=== PATIENT | female | born 1950 | race Caucasian/White ===

== ENCOUNTER 2016-08-31 06:21 | Inpatient (IN) | payer BC ==
--- NOTE | 2016-08-18 17:09 | HP ---
PREOPERATIVE HISTORY AND PHYSICAL: DATE OF ADMISSION: This patient is scheduled for AA admission by Dr. Vega on 08/31/16. DATE OF PREOPERATIVE HISTORY AND PHYSICAL EXAMINATION: 08/17/16. ATTENDING SURGEON: Dr. Maciej Vega (dictated by Bal Keys NP). CHIEF COMPLAINT: Morbid obesity; paraesophageal hernia. HISTORY OF PRESENT ILLNESS: The patient is a 66-year-old female, she stands at 64 inches and weighs 199 pounds for a body mass index of 34.2. She has weight- related comorbidities of type 2 diabetes, paraesophageal hernia with gastroesophageal reflux disease, coronary artery disease with stenting, hypertension, hypercholesterolemia, and depression. She is looking to bariatric surgery as a more permanent solution to her obesity-related comorbidities. During the medically supervised weight loss period, she lost 20 pounds. She has been very committed to behavioral changes, she has completed all of the necessary preoperative diagnostic testing and evaluations, and has been deemed an appropriate candidate by Dr. Vega to proceed with laparoscopic Brayan-en-Y gastric bypass and repair of the paraesophageal hernia. Dr. Vega examined the patient and discussed the nature of the surgical procedure and the expected results of surgery as well as the relevant risks, benefits, and alternatives. Today, I reviewed the typical hospitalization and expected postoperative care and recovery as well as the need for compliance with the stages of the postoperative diet, exercise, vitamin and mineral supplementation, and followup visits. The patient has had a chance to ask questions and stated that she understands the information and is satisfied with the answers given to her questions. She will sign surgical consent on the day of surgery. PAST MEDICAL HISTORY: Significant for obesity, coronary artery disease requiring stenting, type 2 diabetes, hypertension, hypothyroidism, hypercholesterolemia, gallstone pancreatitis, plantar fasciitis, paraesophageal hernia with GERD, depression and anxiety. PAST SURGICAL HISTORY: Coronary artery stenting to the LAD in [address] [place] [address] Monge; total hysterectomy; umbilical hernia repair on two separate occasions; laparoscopic cholecystectomy; tonsillectomy in childhood. MEDICATIONS: 1. Valacyclovir 500 mg p.o. daily. 2. Pantoprazole 40 mg p.o. b.i.d. 3. Levothyroxine 75 mcg p.o. daily. 4. Aspirin 81 mg p.o. daily and I have advised the patient to hold that for 1 week preoperatively. 5. Rosuvastatin 20 mg p.o. daily. 6. Metoprolol ER 50 mg p.o. daily. 7. VESIcare 10 mg p.o. daily. She is also on the following supplements: 1. Vitamin D3 3000 International Units daily. 2. Biotin 5000 mcg daily. 3. Coenzyme Q10 daily. 4. Super B-Complex daily. 5. Vitamin C 500 mg daily. 6. Cinnamon 500 mg 2 tablets daily. 7. Turmeric 500 mg daily. ALLERGIES: FLAGYL caused itching of her feet; TETANUS caused severe flu-like symptoms; VICODIN, ULTRACET, TETRACYCLINE, BACTRIM, and DOXYCYCLINE all cause vomiting. FAMILY HISTORY: Mother age 67 with a history of congestive heart failure, diabetes, and lupus, and was described as overweight. Father age 70 and the patient states he 15 months after his . He was also diabetic and described as overweight. The patient has one sister, age 64, with heart valve disease, described as normal weight. No known anesthesia complications, bleeding tendencies, or clotting disorders in the family. SOCIAL HISTORY: She is and is employed in the [employer] at [employer]. She quit smoking over 40 years ago after smoking 2 packs a day for about 10 years. She denies the use of alcohol or other substances. She feels that she has good support from her and friends. REVIEW OF SYSTEMS: In 2006, she was experiencing heartburn and fatigue and was advised to have a stress test, which was abnormal and she underwent cardiac catheterization and had stenting to the LAD by Dr. Monge in [place]; she did not have a myocardial infarction; she has routine Cardiology followups with Dr. Monge in [place]. She underwent nuclear stress testing in March, which was normal, no ischemia. She had an echocardiogram May 2016, which revealed normal diastolic function with an ejection fraction around 60% to 65%; she denies any chest pain, palpitations, or chest pressure. She has a history of rheumatic fever in adolescence. She is treated for hypertension and hypercholesterolemia. She denies any respiratory complaints. She has a history of gastroesophageal reflux and underwent preoperative upper GI series, which revealed a large reducible paraesophageal hernia, which will be repaired at the same setting as the laparoscopic gastric bypass. She states that her acid reflux is mostly controlled by pantoprazole. She did have an upper endoscopy by Dr. Sheikh, which revealed a moderate-sized hiatal hernia, no North's esophagus. She denies any current diarrhea or constipation. She denies any genitourinary complaints. She denies any previous anesthesia complications or bleeding tendencies and has never received a blood transfusion. She denies any history of deep vein thrombosis or pulmonary embolism. She states that physical limitations due to her obesity include prolonged walking and she has a history of a right torn ACL that was not repaired, so she has chronic right knee pain and left hip pain. She was diagnosed with type 2 diabetes about 2-1/ 2 years ago; she was on metformin, but that was thought to cause diarrhea, so she is not currently on any oral hypoglycemics or insulin, but she is diet controlled; she does not check her fingersticks. She was diagnosed with hypothyroidism many years ago. PHYSICAL EXAMINATION GENERAL SURVEY: The patient is a 66-year-old female, overweight, in no acute distress. VITAL SIGNS: Height 64 inches, weight 198 pounds, body mass index 34. Blood pressure 132/78, pulse 60 and regular, respiratory rate 18, afebrile. HEENT: Benign. NECK: Supple. No cervical lymphadenopathy. No thyromegaly. BACK: No CVA tenderness. LUNGS: Breath sounds bilaterally clear and equal. HEART: Regular rate and rhythm. No murmurs or rubs appreciated. ABDOMEN: Active bowel sounds, obese, multiple well-healed surgical scars. Soft and nondistended and nontender throughout. No obvious masses, organomegaly , or evidence of incisional or ventral hernias. PELVIC EXAM: Deferred. RECTAL EXAM: Deferred. EXTREMITIES: Warm without edema or skin ulcerations. NEUROLOGIC: Alert and oriented x3. Steady gait. SKIN: Warm, dry, intact. IMPRESSION: Class 2 obesity with associated comorbidities. PLAN: AA admission to Dr. Vega' service for laparoscopic Brayan-en-Y gastric bypass and repair of paraesophageal hernia on 08/31/16. The patient started her preoperative diet, 08/17/16. BAL KEYS NP CC: Dr. Joie Lenz; Dr. Vega* [id number]/[facility] #: [id number] [facility] N[facility] FACILITYAllyson
[~2016-08-31 06:21] MED LIST: Buffered Lidocaine 1% SYRIN* 3 ML/SYR SYRINGE INTRADERM ONE; Clindamycin 900 MG IVPREMIX(* 900 MG/50 ML SDV IV ONE; Dexamethasone IV* 4 MG/ML 1 ML (4 MG) IV SLOW PU ONE; Heparin VIAL(*) 5000 UNITS/ML VIAL (FIVE THOUSAND) ONE; ceFAZolin 1 GM in Dextrose (*) 1 GM/50 ML BAG IVPB ONE; ceFAZolin 2 GM PREMIX(*) 2 GM/50 ML BAG IVPB ONE
[2016-08-31] MEDS ORDERED: Methylene Blue 0.5 %* 50 MG/10 ML AMP IV ONE (07:18)
[2016-08-31] MEDS ORDERED: Bupivacaine 0.5% W/EPI SDV* 30 ML VIAL ONE (07:19)
[2016-08-31] MEDS ORDERED: Midazolam* 1 MG/ML 5 ML VIAL (5 MG) ONE (07:28)
[2016-08-31] MEDS ORDERED: Ketorolac INJ* 30 MG/ML 1 ML VIAL ONE (07:28)
[2016-08-31] MEDS ORDERED: Propofol* 10 MG/ML 20 ML BTL IV PUSH ONE (07:28)
[2016-08-31] MEDS ORDERED: Atracurium* 10 MG/ML 10 ML VIAL ONE (07:28)
[2016-08-31] MEDS ORDERED: fentaNYL* 50 MCG/ML 5 ML VIAL (250 MCG VIAL) ONE (07:28)
[2016-08-31] MEDS ORDERED: EPHEDrine (Pressors)* 50 MG/ML VIAL ONE (07:28)
[2016-08-31] MEDS ORDERED: Ondansetron INJ* 2 MG/ML VIAL ONE ×2 (07:28→11:36)
[2016-08-31] MEDS ORDERED: Lidocaine 2% PF * 5 ML VIAL ONE (07:28)
[2016-08-31] MEDS ORDERED: Glycopyrrolate IV* 0.2 MG/ML 1 ML VIAL ONE (08:15)
[2016-08-31] MEDS ORDERED: fentaNYL* 50 MCG/ML 2 ML VIAL (100 MCG VIAL) ONE (08:35)
[2016-08-31] MEDS ORDERED: Atropine 1MG/ML INJ* 1 ML VIAL ONE (09:21)
[2016-08-31] MEDS ORDERED: Phenylephrine IV* 40 MCG/ML 10 ML SYRINGE ONE (09:41)
[2016-08-31] MEDS ORDERED: HYDROmorphone* 1 MG/ML 1 ML SYR IV PRN ×2 (10:36→11:27)
[2016-08-31] MEDS ORDERED: Scopolamine 1.5 mg* PATCH TRANSDERM PRN (10:36)
[2016-08-31] MEDS ORDERED: DiMENhydriNATE IV* 50 MG/ML VIAL IV PUSH PRN (10:36)
[2016-08-31] MEDS ORDERED: Ondansetron INJ* 2 MG/ML VIAL IV PRN ×2 (10:36→11:27)
[2016-08-31] MEDS ORDERED: fentaNYL* 50 MCG/ML 2 ML VIAL (100 MCG VIAL) IV PRN (10:36)
[2016-08-31] MEDS ORDERED: diPHENhydraMINE IV* 50 MG/ML 1 ml VIAL (BENADRYL) SLOW PUSH PRN (11:27)
--- NOTE | 2016-08-31 11:37 | SURGPN ---
Brief Operative Note - Surgery Procedures: PRE/POSTOP DX: MORBID OBESITY/PARAESOPHAGEAL HERNIA PROC: LAP REPAIR PEH AND LRYGB SURG: MECENAS ASSIST: SUNDAY WEBB: VALENTÍN COVINGTON EBL: 100ML IVF: CRYSTALLOID SPEC: NONE DRAIN: NONE COMPL: NONE COND: STABLE, TO RR
[2016-08-31] MEDS ORDERED: Scopolamine 1.5 mg* PATCH ONE (11:48)
[2016-08-31] MEDS ORDERED: DiMENhydriNATE IV* 50 MG/ML VIAL ONE (11:48)
[2016-08-31] MEDS ORDERED: Metoprolol Tartrate IV* 1 MG/ML 5 ML VIAL IV SCH (12:00)
[2016-08-31] MEDS ORDERED: Pantoprazole IV* 40 MG IV SCH (12:00)
[2016-08-31] MEDS ORDERED: Metoprolol Tartrate IV* 1 MG/ML 5 ML VIAL ONE (13:54)
[2016-08-31] MEDS: Heparin VIAL(*) 5000 UNITS/ML VIAL (FIVE THOUSAND) SUBCUT SCH ×2 (14:14→21:11)
[2016-08-31] MEDS ORDERED: Metoclopramide IV* 5 MG/ML 2 ML VIAL ONE (15:29)
[2016-08-31] MEDS ORDERED: PROCHLORPERAZINE INJ 5 MG/ML 2 ML VIAL IV PRN (15:30)
[2016-08-31] MEDS: Metoprolol Tartrate IV* 1 MG/ML 5 ML VIAL IV SCH (20:05)
[2016-08-31] MEDS: Ketorolac INJ* 30 MG/ML 1 ML VIAL IV PRN (21:10)
[2016-09-01] MEDS: Metoprolol Tartrate IV* 1 MG/ML 5 ML VIAL IV SCH ×4 (02:20→20:15)
[2016-09-01] MEDS: Ketorolac INJ* 30 MG/ML 1 ML VIAL IV PRN ×3 (04:02→21:47)
--- NOTE | 2016-09-01 04:26 | OP ---
DATE OF OPERATION: 08/31/16 - ROOM #352 DATE OF : 50 SURGEON: Maciej Vega MD NUCLEAR PHYSICIST: Fabian Solorzano MD ANESTHESIOLOGIST: Bryce Tony MD ANESTHESIA: General endotracheal. PRE-OP DIAGNOSES: Paraesophageal hernia and morbid obesity. POST-OP DIAGNOSES: Paraesophageal hernia and morbid obesity. OPERATIVE PROCEDURE: Laparoscopic repair of paraesophageal hernia and laparoscopic Brayan-en-Y gastric bypass. ESTIMATED BLOOD LOSS: 100 mL. IV FLUIDS: 2.3 L of crystalloid. SPECIMEN: None. DRAINS: None. COMPLICATIONS: None. COUNTS: The instrument, needle, and sponge counts were correct. DESCRIPTION OF PROCEDURE: The patient was brought to the operating room and placed on the table supine. Sequential compression devices were placed on both lower extremities. General anesthesia was administered. Vazquez catheter was placed. The patient's abdomen was prepped and draped in the usual sterile fashion. She received appropriate intravenous antibiotics. Time-out was performed. Local anesthetic was infiltrated in the skin and soft tissue prior to making each incision. Entry to the abdomen was through a left upper quadrant incision accommodating a 12-mm optical trocar. After accessing the peritoneal cavity, carbon dioxide was insufflated to a pressure of 15 mmHg. Under direct visualization, 12-mm bladeless trocars were placed in the supraumbilical midline and in the right upper quadrant. 5-mm trocars were placed in the right upper quadrant medially and left upper quadrant laterally. A Annabel liver retractor was placed percutaneously in the subxiphoid position and used to elevate the left lobe of the liver. Adhesions of omentum to the umbilical region where a previous mesh umbilical hernia repair had been performed were noted; these were taken down as well as omental adhesions to the sigmoid sigmoid. This was done with LigaSure. Approach to the paraesophageal hernia was to initially reduce the stomach from the mediastinum using [id number] technique with atraumatic graspers. The short gastric vessels were then divided in order to enter the plane of the paraesophageal hernia sac, which was opened and dissected out of the mediastinum while the edge of the sac at the hiatus was divided with LigaSure. This was performed initially left to right and then the approach was taken through the pars flaccida to again dissect out the sac and divide it from the right side to the left side meeting the previous area of dissection. In this way, the entire sac was reduced. The esophagus was brought into view and the areolar tissues surrounding the esophagus were divided. The posterior dissection was performed to free the posterior attachments of the sac and this was divided. The vagus nerves were identified and preserved. A quarter- inch [place] drain was used to encircle the gastroesophageal junction and this was secured with Surgitie and this was used to manipulate the esophagus for the remaining portions of the case. The esophagus was freed circumferentially until adequate length of intra-abdominal esophagus was obtained. Subsequently, cruroplasty was performed closing the hiatal hernia with four interrupted 0 Ti- Cron sutures over 56-Czech bougie. Once this was completed, the gastric bypass was performed. The perigastric dissection was undertaken on the lesser curvature about the second crossing vein and a transverse firing with the EndoGIA stapler across the stomach was performed. This was done with a 45-mm zimmerman stapler cartridge and then vertical firings towards the gastroesophageal junction were performed with the 60-mm zimmerman cartridges to complete the gastric pouch, which was approximately 15 to 30 mL volume. After inspecting the benjy lines, noting them to be intact and hemostatic, the ligament of Treitz was identified and then the jejunum was measured out 40 to 50 cm and at this point, this loop was brought up in proximity to the gastric pouch and sutured to the left lateral side of the gastric pouch with interrupted 2-0 silk. Next, a 36-Czech orogastric lavage tube was placed into the gastric pouch and then gastrotomy was created in the pouch with the cautery and an enterotomy created in the jejunum. There was some bleeding on the gastric pouch side and this was eventually controlled with cautery. The gastrojejunal anastomosis was created with the EndoGIA stapler with a 30-mm zimmerman cartridge. The common gastroenterotomy was run closed with 3-0 Maxon. Once this was completed, the jejunum was divided to the left of the gastric pouch and then the gastrojejunal anastomosis was tested with methylene blue dye solution instilled through the orogastric tube. There was no leak identified. The Brayan limb was then measured out for 75 cm and at this point, a functional end- to-side jejunojejunostomy was created with a 60-mm zimmerman cartridge on the TRA. The common enterotomy was then closed with 3-0 Maxon and the mesenteric defect was closed with 3-0 silk in running fashion. Hemostasis was assured and again hiatus was inspected. It was decided to suture the remnant stomach to the crura on the left and right side anteriorly to secure it and cover the anterior defect that remained. Subsequently, the ports were removed and carbon dioxide was released and the incisions were all closed with benjy. The dressings were applied. The patient was extubated uneventfully and transferred to Recovery in stable condition. CC: Joie Lenz MD, [place] * [id number]/[facility] #: [id number] MTDAllyson
[2016-09-01] MEDS: Heparin VIAL(*) 5000 UNITS/ML VIAL (FIVE THOUSAND) SUBCUT SCH ×3 (06:02→21:52)
[2016-09-01] MEDS ORDERED: Famotidine IV* 10 MG/ML 2 ML (20 mg) IV SCH (09:00)
--- NOTE | 2016-09-01 09:09 | PN ---
Progress Note - Progress Note Note: Surgery Progress: S: POD #1. Had some N, one episode of vomiting yesterday; none since. Pain controlled w/ Toradol. Ambulating well. O: Vital Signs - 8 hr 09/01/16 09/01/16 09/01/16 02:31 03:56 07:23 Temperature 98.8 F 98.1 F Pulse Rate 64 70 Respiratory 16 16 Rate Blood Pressure 144/68 130/70 (mmHg) O2 Sat by Pulse 95 91 85 Oximetry Intake and Output Last 24 Hours 08/30/16 08/31/16 09/01/16 09/02/16 06:59 06:59 06:59 06:59 Intake Total 4255 Output Total 3550 650 Balance 705 -650 Weight 190 lb Intake: IV Fluids 3933 LR 3933 IVPB 322 LR 322 Oral 0 Output: Urine 650 Vazquez 3550 Other: Estimated Blood Loss LESS THAN 100 Comment Heart: reg Lungs: clear; few bibasilar crackles Abd: +BS; dressings clean, dry; soft; incisional tenderness only A: s/p lap gastric bypass w/ repair hiatal hernia, doing well P: d/c Vazquez; start refugio clears
[2016-09-01] MEDS: Levothyroxine TAB* 75 MCG TAB PO SCH (09:48)
[2016-09-01] MEDS: D5W 1/2 NS KCl 20 Meq 1000 ML* 1,000 ML IV SCH (17:54)
[2016-09-01] MEDS: CMC:Pantoprazole TAB (NF) 40 MG TAB PO SCH (21:49)
[2016-09-02] MEDS: D5W 1/2 NS KCl 20 Meq 1000 ML* 1,000 ML IV SCH (01:55)
[2016-09-02] MEDS: Metoprolol Tartrate IV* 1 MG/ML 5 ML VIAL IV SCH ×2 (02:01→08:58)
[2016-09-02] MEDS: Ketorolac INJ* 30 MG/ML 1 ML VIAL IV PRN ×2 (03:56→10:37)
[2016-09-02] MEDS: Heparin VIAL(*) 5000 UNITS/ML VIAL (FIVE THOUSAND) SUBCUT SCH (06:22)
[2016-09-02 07:46] VITALS: BP 144/68
--- NOTE | 2016-09-02 08:33 | PN ---
Progress Note - Progress Note SOAP: Subjective:tolerating po,walking,large uo,good pain control,wants to go home [] Objective:afeb,VSS,lungs:crackles at both bases,mid and upper choudhury clear;heart :RRR,no murmur;Abd:+bs,nondistended,incisions intact with dressings,no erythema; ext:no edema,nontender Vital Signs Temp 97.8 F 09/02/16 07:14 Pulse 60 09/02/16 07:14 Resp 18 09/02/16 07:50 BP 144/68 09/02/16 07:14 Pulse Ox 92 09/02/16 07:14 Intake & Output 09/01/16 09/02/16 09/02/16 18:59 06:59 18:59 Intake Total 1927 1770 Output Total 1275 3450 Balance 652 -1680 Intake: IV Fluids 1717 990 D5W 1/2 NS 20 meq KCL 990 LR 1717 Oral 210 780 Output: Urine 1150 3450 Vazquez 125 [] Assessment:POD#2 doing well,would like to go home [] Plan:push IS,update Dr Vega,possible discharge today []
[2016-09-02] MEDS: Levothyroxine TAB* 75 MCG TAB PO SCH (08:57)
[2016-09-02] MEDS: CMC:Pantoprazole TAB (NF) 40 MG TAB PO SCH (08:57)
--- NOTE | 2016-09-02 22:58 | DS ---
DISCHARGE SUMMARY: DATE OF ADMISSION: 08/31/16 DATE OF DISCHARGE: 09/02/16 ATTENDING PHYSICIAN: Dr. Maciej Vega. (DICTATED BY BAL KEYS NP) HOSPITAL COURSE: Please refer to admission history and physical for admission details. The patient was taken to the operating room on 08/31/16, and underwent laparoscopic repair of paraesophageal hernia and laparoscopic Brayan-en- Y gastric bypass. She has had an uneventful postoperative course and as of the morning of discharge was tolerating 120 mL of clear liquids per hour, her pain was well controlled. She was urinating in large amounts and walking in the [place]. PHYSICAL EXAMINATION: Vital Signs: Temperature 97.8, pulse 60 and regular, respiratory rate 16, O2 saturation 92% on room air, blood pressure 144/68. Lungs: Breath sounds bilaterally clear and equal. A few crackles at both bases cleared with cough. Heart: Regular rate and rhythm. No murmurs or rubs appreciated. Abdomen: Active bowel sounds. Multiple laparoscopic incisions are clean, dry, and intact without any erythema or drainage. Her abdomen is soft. Extremities are nontender without edema. IMPRESSION: Status post laparoscopic repair of paraesophageal hernia and laparoscopic Brayan-en-Y gastric bypass, doing very well. PLAN: Discharge home today; discharge instructions were reviewed with the patient. All of her questions were answered; medications were reviewed and she understands which medications to hold. She will follow the prescribed bariatric dietary guidelines, and she will be followed up in our office within the next week. BAL KEYS NP [id number]/[facility] #: [id number] JANNIE
[2016-09-03] MEDS ORDERED: Scopolomine PATCH Remove* 1 NOTE MISC PATCH OFF ONE (10:37)
== END 2016-09-02 11:40 | disposition home or self-care (01) | DRG 403 ==
LOC: AA 06:21 → SSU 13:38
PROVIDERS: ADMIT Surgery; ATTEND Surgery
PROC: 0BQS4ZZ (ICD-10-PCS; principal; 2016-09-02)
PROC: 0BQR4ZZ (ICD-10-PCS; 2016-09-02)
PROC: 0D164ZA Bypass Stomach to Jejunum, Percutaneous Endoscopic Approach (ICD-10-PCS; 2016-09-02)
DX: E66.01 Morbid (severe) obesity due to excess calories (principal); I10 Essential (primary) hypertension; K44.9 Diaphragmatic hernia without obstruction or gangrene; K21.9 Gastro-esophageal reflux disease without esophagitis; E11.9 Type 2 diabetes mellitus without complications; I25.10 Atherosclerotic heart disease of native coronary artery without angina pectoris; F32.9 Major depressive disorder, single episode, unspecified; E78.00 Pure hypercholesterolemia, unspecified; G89.29 Other chronic pain; M25.561 Pain in right knee; M25.552 Pain in left hip; G43.909 Migraine, unspecified, not intractable, without status migrainosus; E03.9 Hypothyroidism, unspecified; F41.9 Anxiety disorder, unspecified; Z90.710 Acquired absence of both cervix and uterus; Z68.34 Body mass index [BMI] 34.0-34.9, adult; Z95.5 Presence of coronary angioplasty implant and graft; Z90.49 Acquired absence of other specified parts of digestive tract; Z88.1 Allergy status to other antibiotic agents; Z88.6 Allergy status to analgesic agent; Z88.7 Allergy status to serum and vaccine; Z82.49 Family history of ischemic heart disease and other diseases of the circulatory system; Z83.3 Family history of diabetes mellitus; Z84.89 Family history of other specified conditions; Z83.2 Family history of diseases of the blood and blood-forming organs and certain disorders involving the immune mechanism; Z87.891 Personal history of nicotine dependence
CPT/HCPCS: 94760; A9270-GY; C1776; J0461; J0690; J1240; J1644; J1885; J2250; J2405; J2704; J3010

== ENCOUNTER 2018-01-27 14:17 | Emergency (ER) | payer BC ==
[2018-01-27 15:11] VITALS: BP 171/71
--- NOTE | 2018-01-27 15:18 | UC ---
Complaint Female HPI - HPI Summary HPI Summary: 67 yo female presents with LLQ pain since last night. She tells me that yesterday she developed a headache, nausea, fever of 101F, and LLQ pain. Today her headache, nausea, and fever have resolved, but still has some mild LLQ pain. She does endorse some urinary frequency and urgency since yesterday. She had a colonoscopy in the past, which was normal per pt - she is due for another one in 2 months with GI. Her last BM was this morning and was well formed and normal for her. No blood. She had a hysterectomy in the past. She did eat a large amount of peanuts the day before her symptoms began, which she has not eaten in years. Currently denies fever, chills, SOB, chest pain, n/v/d/c, flank pain, vaginal bleeding or discharge. - History Of Current Complaint Chief Complaint: UCGeneralIllness Stated Complaint: LEFT SIDE/BACK PAIN, NAUSEA, HEADACHE Hx Obtained From: Patient Severity Initially: Severe Severity Currently: Moderate Pain Intensity: 5 Pain Scale Used: 0-10 Numeric - Allergies/Home Medications Allergies/Adverse Reactions: Allergies Allergy/AdvReac Type Severity Reaction Status Date / Time doxycycline Allergy Unknown Verified 01/27/18 15:09 Reaction Details hydrocodone Allergy Unknown Verified 01/27/18 15:09 Reaction Details metronidazole [From Flagyl] Allergy Unknown Verified 01/27/18 15:09 Reaction Details sulfamethoxazole Allergy Unknown Verified 01/27/18 15:09 [From Bactrim] Reaction Details Tetanus Vaccines and Toxoid Allergy Unknown Verified 01/27/18 15:09 Reaction Details tetracycline [From Sumycin] Allergy Unknown Verified 01/27/18 15:09 Reaction Details Tetracyclines Allergy Unknown Verified 01/27/18 15:09 Reaction Details tramadol Allergy Unknown Verified 01/27/18 15:09 Reaction Details trimethoprim [From Bactrim] Allergy Unknown Verified 01/27/18 15:09 Reaction Details Home Medications: Home Medications Ascorbic Acid TAB* [Vitamin C TAB*] 500 mg PO BID 01/27/18 [History Confirmed 01/27/18] Biotin [Ultra Biotin] 5 mg PO DAILY 01/27/18 [History Confirmed 01/27/18] Cholecalciferol TAB* [Vitamin D TAB*] 1,000 unit PO DAILY 01/27/18 [History Confirmed 01/27/18] Cyanocobalamin TAB* [Vitamin B12 TAB*] 500 mcg PO DAILY 01/27/18 [History Confirmed 01/27/18] Levothyroxine TAB* [Synthroid TAB*] 75 mcg PO DAILY 01/27/18 [History Confirmed 01/27/18] Melatonin/Pyridoxine HCl (B6) [Melatonin 10 mg Tablet] 1 each PO BEDTIME [History Confirmed 01/27/18] Metoprolol Succinate XL TAB* [Toprol XL TAB*] 50 mg PO DAILY 01/27/18 [History Confirmed 01/27/18] Pantoprazole TAB (NF) [Protonix TAB (NF)] 40 mg PO DAILY 01/27/18 [History Confirmed 01/27/18] Rosuvastatin Calcium [Crestor] 20 mg PO DAILY 01/27/18 [History Confirmed ] Ubidecarenone [Co Q10] 200 mg PO DAILY 01/27/18 [History Confirmed 01/27/18] ValACYclovir (*) [Valtrex 500 mg (*)] 500 mg PO DAILY 01/27/18 [History Confirmed 01/27/18] Vitamin B Complex TAB* [B Complex-50*] 1 tab PO DAILY 01/27/18 [History Confirmed 01/27/18] PMH/Surg Hx/FS Hx/Imm Hx Endocrine History: Dyslipidemia Cardiovascular History: Hypertension GI/ History: Gastroesophageal Reflux - Surgical History Surgical History: Yes Surgery Procedure, Year, and Place: Gastric Bypass, 2017; tonisllectomy; hysterectomy; cholecystectomy; Hernia Repairs unbilical; - Family History Known Family History: Positive: Hypertension - Social History Occupation: Retired Lives: With Family Alcohol Use: None Substance Use Type: None Smoking Status (MU): Former Smoker Amount Used/How Often: 2 PPD X 9-10 YEARS Have You Smoked in the Last Year: No When Did the Patient Quit Smoking/Using Tobacco: ~1976 - Immunization History Most Recent Influenza Vaccination: 2016 Most Recent Pneumonia Vaccination: HAS HAD Review of Systems Constitutional: Negative Skin: Negative Eyes: Negative ENT: Negative Respiratory: Negative Cardiovascular: Negative Gastrointestinal: Abdominal Pain, Nausea Genitourinary: Frequency, Urgency Neurovascular: Negative Neurological: Negative Psychological: Negative All Other Systems Reviewed And Are Negative: Yes Physical Exam - Summary Physical Exam Summary: GENERAL: NAD. WDWN. No pain distress. SKIN: No rashes, sores, lesions, or open wounds. NECK: Supple. Nontender. No lymphadenopathy. CHEST: CTAB. No r/r/w. No accessory muscle use. Breathing comfortably and in no distress. CV: RRR. Without m/r/g. Pulses intact. Cap refill <2seconds ABDOMEN: Mild LLQ TTP. Soft. No distention or guarding. No CVA tenderness. Bowel sounds present NEURO: Alert. PSYCH: Age appropriate behavior. Triage Information Reviewed: Yes Vital Signs: Initial Vital Signs Temp 99 F 01/27/18 14:55 Pulse 59 01/27/18 14:55 Resp 16 01/27/18 14:55 BP 171/71 01/27/18 14:55 Pulse Ox 100 01/27/18 14:55 Laboratory Tests 01/27/18 15:04 POC Urine Color Yellow POC Urine Clarity Clear POC Urine pH 6.5 POC Ur Specif [place] 1.010 POC Urine Protein Negative POC Ur Glucose (UA) Negative POC Urine Ketones Negative POC Urine Blood Negative POC Urine Nitrite Negative POC Urine Bilirubin Negative POC Urine Urobilinogen 1.0 POC U Leukocyte Esteras Trace A Vital Signs Reviewed: Yes Complaint Female Dx - Course Course Of Treatment: Her UA had trace leuks. She is well appearing and feels improved today compared to yesterday. I suspect her symptoms may be related to diverticulitis. I discussed this with the pt and she did not want to go to the hospital for a work-up for this and asked to be treated as an outpatient. I will treat her with Cipro and Flagyl with a strong advisement to go to the ED if her symptoms return/worsen or if she develops new symptoms. Of note, tierra is on her allergy list - but when asked about this, pt says she has had it in the past without issue except for one time she developed a mild rash, but thinks this could have been from the infection she was being treated for and not the medication. - Differential Dx/Diagnosis Provider Diagnoses: LLQ pain Discharge - Sign-Out/Discharge Documenting (check all that apply): Patient Departure All imaging exams completed and their final reports reviewed: No Studies - Discharge Plan Condition: Stable Disposition: HOME Prescriptions: Ciprofloxacin HCl [Cipro 500 MG TAB] 500 mg PO BID #14 tab metroNIDAZOLE [Flagyl 500 MG TAB] 500 mg PO TID #21 tab Patient Education Materials: Diverticulitis (ED), Diverticulosis (ED), Diverticulitis Diet (ED) Referrals: Joie Lenz MD [Primary Care Provider] - Additional Instructions: If you develop a fever, shortness of breath, chest pain, new or worsening symptoms - please call your PCP or go to the ED. Your blood pressure was high at todays visit. Please see your primary provider within 4 weeks for recheck and re-evaluation. - Billing Disposition and Condition Condition: STABLE Disposition: Home - Attestation Statements Provider Attestation: I was available for consult. This patient was seen by the ANAST[facility]. The patient was not presented to, seen by, or examined by me. -Ad
== END 2018-01-27 15:42 | disposition home or self-care (01) ==
LOC: UCCORT 14:17
DX: R10.32 Left lower quadrant pain (principal); Z88.1 Allergy status to other antibiotic agents; Z88.5 Allergy status to narcotic agent; Z88.3 Allergy status to other anti-infective agents; Z88.7 Allergy status to serum and vaccine; Z88.8 Allergy status to other drugs, medicaments and biological substances; I10 Essential (primary) hypertension; K21.9 Gastro-esophageal reflux disease without esophagitis; E78.5 Hyperlipidemia, unspecified; Z87.891 Personal history of nicotine dependence
CPT/HCPCS: 81003; 87086; 99212; G0463